=== PATIENT | female | born 2000 | race African-American/Black ===

== ENCOUNTER 2023-01-13 12:29 | Emergency (ER) | payer MEDICAID, SELFPAY ==
[2023-01-13 12:30] VITALS: BP 119/62; PULSE 88; RESP 16; TEMP 37; O2SAT 99; BMI 16.6
--- NOTE | 2023-01-13 12:55 | CT_ITS ---
STUDY: CT ABDOMEN AND PELVIS WITH CONTRAST REASON FOR EXAM: Female, 22 years old. RLQ pain -- IV PO Contrast RADIATION DOSAGE (If Supplied By Facility): CTDIvol = ( 13.89 ) mGy, DLP = ( 211.96 ) mGycm TECHNIQUE: Transaxial images were obtained from the dome of the diaphragm to the symphysis pubis with oral contrast. Oral and IV Gastrografin and 70mL Isovue-370 was administered. Sagittal and coronal images were reconstructed. Individualized dose optimization techniques were used for this CT. COMPARISON: None. FINDINGS: The visualized lung bases are unremarkable. The visualized portions of the heart are within normal limits. Normal liver. Normal gallbladder and extrahepatic biliary system. Normal spleen. Normal pancreas. Normal bilateral adrenal glands. Normal right kidney. Normal left kidney. Normal visualized stomach. Normal small intestine. Normal colon. The appendix is visualized and appears normal. Normal abdominal aorta. Normal inferior vena cava. Normal retroperitoneum. Normal urinary bladder. Normal visualized uterus. There is a spherical fluid density mass situated above the bladder, measuring approximately 6.5 x 6.0 x 8.4 cm. This is a most likely nonspecific ovarian mass, and further evaluation with contrasted MRI is recommended. Normal abdominal wall. Normal osseous structures. CT/Abdomen/Pelvis WITH Contrast IMPRESSION: 8.4 cm midline pelvic mass directly above the bladder, most likely nonspecific ovarian mass, and further evaluation with contrast MRI is recommended. Note: It is not considered likely that pelvic ultrasound will add any additional information. Electronically Signed: Alexys Smith MD at 15:40 EDT ,
--- NOTE | 2023-01-13 12:56 | ED.VIS.GI ---
HPI HPI - GI History of Present Illness Chief Complaint: Abd Pain Informant: patient Abdominal Pain/Flank Pain Onset: Days (2) Context: Sudden Onset (Mild when started but gradually worse later) Nausea/Vomiting/Emesis GI Symptom: Positive for Nausea Narrative Narrative: Patient with right lower quadrant pain that started day before yesterday and progressively worsening. Nausea and vomiting, no diarrhea or urinary symptoms. Initially the patient states that he feels like there is something on top of her uterus. However on further questioning, she states that she said that because of the location and where she thought her uterus was, she does not have a history of ovarian cysts or other [employer] issues except for the fact that she missed her menstrual cycle 2 weeks ago, and things have been tensed down there ever since. She denies any vaginal discharge or bleeding recently. PFSH PFSH Medical History no medical history no medical history Home Medications tramadol 50 mg tablet 50 mg PO Q6H PRN pain 3 days #12 tabs 01/13/23 [Rx Last Taken Unknown] Allergy/AdvReac Type Severity Reaction Status Date / Time No Known Allergies Allergy Verified 01/13/23 12:31 Surgical History no surgical history Social History Smoking Status: Never smoker ROS ROS ED Constitutional Constitutional ED: Reports anorexia and malaise; Denies chills or fever(s) Eyes Eyes: Denies change in vision or diplopia ENT ENT ED: Denies rhinorrhea or sore throat Cardiovascular Cardiovascular: Denies chest pain or palpitations Respiratory/Chest Respiratory/Chest: Denies cough or dyspnea Gastrointestinal Gastrointestinal: Reports abdominal pain, nausea and vomiting; Denies diarrhea Genitourinary Genitourinary ED: Denies dysuria or hematuria Musculoskeletal Musculoskeletal: Denies back pain or neck pain Integumentary Denies abscess or rash Neurologic Neurologic: Denies headache(s), paresthesias or weakness Psychiatric Psychiatric: Denies anxiety or suicidal thoughts EXAM Physical Exam Const Vital Signs: 01/13/23 12:30 01/13/23 15:05 Temperature 98.6 F Temperature Source Oral Pulse Rate 88 82 Respiratory Rate 16 16 Blood Pressure 119/62 118/70 Blood Pressure Mean 81 86 Pulse Ox 99 99 Oxygen Delivery Method Room Air Positive well nourished and well developed General Appearance ED: well developed and NAD HEENT Reports moist mucous membranes normocephalic and atraumatic Eyes PERRL and EOMs intact bilaterally Neck full ROM and supple Resp normal respiratory effort and clear to auscultation bilaterally Cardio regular rate, regular rhythm and no murmurs GI non-distended GI Narrative: Extremely tender with voluntary guarding throughout the right lower quadrant. No distention. No rebound tenderness. Tender suprapubic area as well. Negative psoas, negative obturator, negative Rovsing, negative Ambriz. Nontender throughout the upper abdomen in the left side. Auscultation: normoactive bowel sounds Palpation: soft Back/Spine no CVA tenderness General Back: other FROM Extremity normal to inspection General Extremety ED: Negative for edema, pulses abnormal or tenderness General Extremity: Negative for edema or pulses abnormal Neuro oriented x3, CN's II-XII intact bilaterally and no sensory deficits noted Sensorium / Orientation: awake and alert Motor Exam: strength 5/5 throughout Psych Mood & Affect: anxious Skin no rashes or lesions noted and no wounds MDM MDM MDM Narrative Medical decision making narrative: Differential includes ovarian processes, GI, appendicitis, patient does not appear to be writhing in bed like she is in severe pain like a torsion, so we started with CT of the abdomen/pelvis, I reviewed the images and the radiologist's interpretation which I agree with, basically shows a large mass that seems to be originating from the right ovary more than likely. Reexamination the patient is doing okay, she is resting comfortably in bed, she felt better after the pain medicine we gave her, her is negative. I discussed this with her, discussed the fact that there is a mass there, a cancerous possibility but there also noncancerous possibilities, and discussed with Dr. Dallas Owusu who was on-call for unassigned to the patient recently moved here. He agrees with sending the patient home for close outpatient follow-up in the office, we did discuss that the radiologist discussed the likelihood that pelvic ultrasound would not add additional information, and since I do not think clinically she appears like torsion, we are all in agreement that she will follow-up as an outpatient. Lab Data Attestation: I reviewed the patient's lab results. Labs: Laboratory Results - last 24 hr 01/13/23 01/13/23 01/13/23 13:05 13:05 13:05 WBC 7.4 RBC 4.50 Hgb 14.3 Hct 42.3 MCV 94.0 MCH 31.8 MCHC 33.8 RDW Std Deviation 42.7 RDW Coeff of Artemio 12.3 Plt Count 238 MPV 10.7 Immature Gran % (Auto) 0.300 Neut % (Auto) 61.7 Lymph % (Auto) 27.7 [place] % (Auto) 8.5 Eos % (Auto) 1.5 Baso % (Auto) 0.3 Absolute Neuts (auto) 4.6 Absolute Lymphs (auto) 2.06 Nucleated RBC % 0 Sodium 137 Potassium 3.9 Chloride 106 Carbon Dioxide 26.0 Anion Gap 5 BUN 17 Creatinine 0.83 Estim Creat Clear Calc 75.15 Est GFR (MDRD) Af Amer 112 Est GFR (MDRD) Non-Af 92 BUN/Creatinine Ratio 20.4 H Glucose 81 Calcium 9.7 Serum , Qual NEGATIVE Urine Color Urine Clarity Urine pH Ur Specific [place] Urine Protein Urine Glucose (UA) Urine Ketones Urine Occult Blood Urine Nitrite Urine Bilirubin Urine Urobilinogen Ur Leukocyte Esterase Urine RBC Urine WBC Ur Squamous Epith Cells Urine Bacteria Urine Mucus 01/13/23 14:36 WBC RBC Hgb Hct MCV MCH MCHC RDW Std Deviation RDW Coeff of Artemio Plt Count MPV Immature Gran % (Auto) Neut % (Auto) Lymph % (Auto) [place] % (Auto) Eos % (Auto) Baso % (Auto) Absolute Neuts (auto) Absolute Lymphs (auto) Nucleated RBC % Sodium Potassium Chloride Carbon Dioxide Anion Gap BUN Creatinine Estim Creat Clear Calc Est GFR (MDRD) Af Amer Est GFR (MDRD) Non-Af BUN/Creatinine Ratio Glucose Calcium Serum , Qual Urine Color Yellow Urine Clarity Clear Urine pH 6.0 Ur Specific [place] 1.010 Urine Protein 15 H Urine Glucose (UA) Normal Urine Ketones 15 H Urine Occult Blood Negative Urine Nitrite Negative Urine Bilirubin Negative Urine Urobilinogen Normal Ur Leukocyte Esterase 25 H Urine RBC 0 SEEN Urine WBC 0 SEEN Ur Squamous Epith Cells 0-5 SEEN Urine Bacteria 0 SEEN Urine Mucus 0 SEEN Radiography Diagnostic Testing: Clinical Impression(s) from Imaging Studies Abdomen/Pelvis CT 01/13/23 12:55 IMPRESSION: 8.4 cm midline pelvic mass directly above the bladder, most likely nonspecific ovarian mass, and further evaluation with contrast MRI is recommended. Note: It is not considered likely that pelvic ultrasound will add any additional information. Electronically Signed: Alexys Smith MD at 15:40 EDT , Discharge Plan Triage Chief Complaint: Abd Pain ED Provider: Louie Tyler Dx/Rx/DC Orders Clinical Impression: Mass of right ovary, Pelvic pain Instructions: ED Tumor, Uncertain Cause Prescriptions: New tramadol 50 mg tablet 50 mg PO Q6H PRN (Reason: pain) 3 Days Qty: 12 0RF Primary Care Provider: Care Physician,No Primary Referrals: Dallas Owusu MD [Med Staff - Active Staff] - As soon as possible (call for appt) NOT,DEFINED [Non-Staff] - Disposition Disposition: Home, Self Care
[2023-01-13] MEDS: Ondansetron 4 MG/2 ML Vial IV (13:09)
[2023-01-13] MEDS: Morphine 4 MG/ML Syringe IV (13:09)
[2023-01-13] MEDS: 0.9% Normal Saline 1,000 ML 125 ML IV (13:09)
[2023-01-13 13:21] LABS: Absolute Lymphocyte Count 2.06 X10^3/uL (0.83-4.51); Absolute Neutrophil Count 4.6 X10^3/uL (2.0-7.7); Basophil# 0.02 X10^3/uL; Basophil% 0.3 % (0-1); Eosinophil# 0.11 X10^3/uL; Eosinophils% 1.5 % (0-5); Hematocrit 42.3 % (37-47); Hemoglobin 14.3 g/dL (12.0-15.0); Lymphocyte # 2.06 X10^3/ul (0.83-4.51); Lymphocyte % 27.7 % (19-41); Mean Corp Hgb Conc 33.8 g/dL (32-36); Mean Corpuscular Hgb 31.8 pg (27.0-32.0); Mean Platelet Vol. 10.7 fl (6.2-12.0); Monocyte# 0.63 X10^3/uL; Monocyte% 8.5 % (0-10); NRBC Flagged by Analyzer 0 % (0-5); Neutrophil % 61.7 % (47-70); Platelet Count 238 K/mm3 (150-450); RBC Distribution Width CV 12.3 % (11.6-14.6); RBC Distribution Width SD 42.7 fl (35.1-43.9); White Blood Count 7.4 K/mm3 (4.4-11.0)
[2023-01-13 13:34] LABS: Anion Gap 5 (5-15); BUN 17 mg/dL (7-18); BUN/Creat Ratio 20.4 RATIO (10-20); Calcium,Total 9.7 mg/dL (8.5-10.1); Chloride 106 mmol/L (98-107); Creatinine, Serum 0.83 mg/dL (0.55-1.02); EST Glomerular Filtration Rate 92 mL/min (>60); Est Glom Filt Rate - Afr Amer 112 mL/min (>60); Estimated Creatinine Clearance 75.15 ml/min; Glucose 81 mg/dL (74-106); Potassium 3.9 mmol/L (3.5-5.1); Sodium Level 137 mmol/L (136-145)
[2023-01-13 13:45] LABS: Internal QC Validated? YES +Cl - CLEAR BKGD; Pregnancy, Serum, hCG Quali. NEGATIVE Negative
[2023-01-13 14:41] LABS: Bacteria 0 SEEN /hpf (None Seen); Mucous, Urine 0 SEEN /hpf (<or=2+); Red Blood Cells-Urine 0 SEEN /hpf (0-5); White Blood Cells 0 SEEN /hpf (0-5)
[2023-01-13 14:43] LABS: Color, Urine Yellow (Yellow); Glucose, Dipstick Normal (Normal); Ketone-Dipstick 15 mg/dl (Negative); Leukocyte Esterase-Dipstick 25 /ul (Negative); Nitrite-Dipstick Negative (Negative); Occult Blood-Urine Negative /ul (Negative); Protein-Dipstick 15 mg/dl (Negative); Urine Bilirubin Dipstick Negative (Negative); Urine Clarity Clear (Clear); Urine Urobilinogen Normal (Normal)
[2023-01-13 14:48] LABS: Squamous Epithelial Cells - UA 0-5 SEEN /hpf (5-10)
[2023-01-13 15:05] VITALS: BP 118/70; PULSE 82; RESP 16; O2SAT 99
[2023-01-13 17:11] VITALS: BP 116/78; PULSE 86; RESP 16; O2SAT 99
== END 2023-01-13 17:13 | disposition home or self-care (01) ==
PROVIDERS: Emergency Provider Emergency Medicine; Visit Provider Emergency Medicine
DX: N83.8 Other noninflammatory disorders of ovary, fallopian tube and broad ligament (principal); R11.2 Nausea with vomiting, unspecified; R10.2 Pelvic and perineal pain; R10.31 Right lower quadrant pain
CPT/HCPCS: 74177; 80048; 81001; 84703; 85025; 96361; 96374; 96375; 99283; J7030; Q9967; A4216; J2405